=== PATIENT | female | born 1940 | race Caucasian/White ===

== ENCOUNTER 2024-09-25 20:46 | Emergency (ER) | payer OTHER, SELFPAY ==
[2024-09-25 20:50] VITALS: BP 177/84
[2024-09-25 21:41] LABS: ALT (SGPT) 16 U/L (0-35); AST (SGOT) 25 U/L (14-36); Albumin 4.4 g/dl (3.5-5.0); Alkaline Phosphatase 75 U/L (38-126); Blood Urea Nitrogen 25 mg/dl (7-17); Calcium 9.5 mg/dl (8.4-10.2); Carbon Dioxide 24 mmol/L (22-30); Chloride 109 mmol/L (98-107); Glucose 108 mg/dl (70-99); Potassium 4.6 mmol/L (3.5-5.1); Sodium 139 mmol/L (135-145); Total Protein 8.0 g/dl (6.3-8.2); eGFR > 60.00
--- NOTE | 2024-09-25 22:13 | ED.GENMED ---
History of Present Illness
General
Chief Complaint: Chest Pain
Time Seen by Provider: 09/25/24 22:12
History of Present Illness
History of Present Illness:
84-year-old female history of Alzheimer's, hyperlipidemia presenting with left upper trapezius pain starting today. Contrary to triage note, patient denies any chest pain or difficulty breathing. Patient denies any fall or trauma. Patient denies
numbness, weakness or tingling. Patient was given Tylenol 650 mg prior to arrival. Patient states that pain has since resolved and is requesting discharge home.
Phy Exam
Physical Exam
Physical Exam:
General: Alert, no acute distress
Head: NCAT
Eyes: clear conjunctiva
Neck: supple
Cardiac: regular rate and rhythm, no murmur
Lungs: clear to auscultation bilaterally. No wheezes, rales, or rhonchi. Speaking full unlabored sentences. No respiratory distress.
Abdomen: soft, nondistended nontender. No rebound or guarding.
MSK: no lower extremity edema bilaterally. No deformity. FROM bilateral arms. palpable radial pulses bilaterally. no tenderness to palpation to upper trapezius
Skin: warm, dry
Neuro: Alert and oriented x3. no focal deficits. ambulatory with steady gait
Scores
Heart Score for Chest Pain Patients
STEMI patient?: No
History: Slightly or Non-Suspicious
ECG: Normal
Age: >/= 65 years
Risk Factors: 1 or 2 Risk Factors
Troponin: </= Normal Limit (did not obtain secondary to pt refusing redraw)
Heart Score for Chest Pain Patients: 3
Heart Score Risk: 2.5% MACE over next 6 weeks
Course
Orders/Labs/Results
Orders:
Orders
09/25/24 20:52
Electrocardiogram (*1) Urgent
Reason for Study: Chest Pain
09/25/24 20:53
EKG- Treatment ONCE
09/25/24 21:15
Comprehensive Metabolic Panel Urgent
09/25/24 21:25
Complete Blood Count/With Diff Urgent
09/25/24 21:46
Troponin I Urgent
09/25/24 22:39
Olanzapine [Zyprexa] 10 mg IM NOW STA
Abnormal Lab Results
09/25/24
21:15
Chloride 109 H mmol/L
(98-107)
BUN 25 H mg/dl
(7-17)
Glucose 108 H mg/dl
(70-99)
09/25/24 21:15
Vital Signs
Initial and Last Documented VS:
Initial Vital Signs
Temp Pulse Resp BP Pulse Ox
98.7 F 67 16 177/84 99
09/25/24 20:50 09/25/24 20:50 09/25/24 20:50 09/25/24 20:50 09/25/24 20:50
Last Documented Vital Signs
Temp Pulse Resp BP Pulse Ox
98.7 F 65 19 170/76 99
09/25/24 20:50 09/26/24 02:34 09/26/24 02:34 09/26/24 02:34 09/26/24 02:34
MDM/Problems Addressed
MDM/Problems Addressed:
84-year-old female history of Alzheimer's, hyperlipidemia presenting with left upper trapezius pain. Patient denies any chest pain or shortness of breath. Patient states that symptoms have since resolved with taking Tylenol and is requesting
discharge home. EKG unremarkable. Given asymptomatic, unremarkable EKG, no reported chest pain, suspect musculoskeletal pain. Stable for discharge with PCP follow-up
*Pulse Oximetry
SaO2: 99
Oxygen Mode of Delivery: Room air
Patient hypoxic: no
*EKG
Interpreted by ED Provider?: Yes (EKG shows normal sinus rhythm at 62 bpm with HI 170 QTc 410 no acute ischemic changes)
*Critical Care Note
Total Time (30-74mins, 75-104mins- exclusive of procedures): Not Applicable
ED Attending Note
-
Portions of this chart may have been created with voice recognition software.� Occasional wrong word or��sound alike� substitutions may have occurred due to the inherent limitations of voice recognition software.
Discharge Plan
Departure
Patient Disposition: Home (Routine Discharge)
Date of Disposition: 09/25/24
Time of Disposition: 22:25
Patient with high blood pressure during this ER visit?: Yes
Discharge Problem:
Left shoulder pain
Instructions: Upper back pain, BLOOD PRESSURE
Activity Restrictions/Additional Instructions:
Take Tylenol 175 mg every 6 hours and/or ibuprofen 800 mg every 8 hours with food as needed for pain
Follow-up with primary care doctor in 1 to 2 days
Return to emergency department for chest pain, shortness of breath or new/worsening symptoms
Interventions
Interventions:
*Risk Screen - Suicide Last Done: 09/26/24 02:35
*General Assessment Last Done: 09/26/24 02:35
*Neglect/Abuse Screening Last Done: 09/26/24 02:35
*ED- Fall Risk Assessment Last Done: 09/26/24 02:35
*ED COVID-19 Vaccine History Last Done: 09/26/24 02:35
*Nursing Disposition Last Done: 09/26/24 02:35
ED- Cardiac Assessment Last Done: 09/25/24 22:24
Discharge Date and Time
Discharge Date/Time: 09/26/24 02:36
Print Language: AFGHAN
[2024-09-25] MEDS: ZYPREXA 10 MG IM (22:43)
[2024-09-26 02:34] VITALS: BP 170/76
== END 2024-09-26 02:36 | disposition home or self-care (01) ==
LOC: EMR 20:46
PROVIDERS: Student in an Organized Health Care Education/Training Program; EMERGENCY PHYSICIAN Emergency Medicine
DX: M25.512 Pain in left shoulder (principal); R07.9 Chest pain, unspecified; R03.0 Elevated blood-pressure reading, without diagnosis of hypertension; G30.9 Alzheimer's disease, unspecified; E78.5 Hyperlipidemia, unspecified
CPT/HCPCS: 99284; 96372; 80053; 93005; J2358